=== PATIENT | female | born 1960 | race Asian ===

== ENCOUNTER 2021-12-18 09:01 | Inpatient (IN) | payer OTHER ==
[~2021-12-18] VITALS: Ht 149.9 cm; Wt 93.8 kg
[2021-12-18 09:35] LABS: BASOPHILS % (AUTO) 0.8 % (0.0-2.0); EOSINOPHILS % (AUTO) 2.5 % (1.0-6.0); HEMATOCRIT 38.3 % (36-46); HEMOGLOBIN 12.6 g/dL (12.0-16.0); LYMPHOCYTES # (AUTO) 1.7 K/uL (1.0-4.8); LYMPHOCYTES % (AUTO) 19.7 % (22.0-44.0); MEAN CORPUSCULAR VOLUME 82 fL (80-100); MONOCYTES # (AUTO) 0.5 K/uL (0.1-1.0); MONOCYTES % (AUTO) 5.5 % (2.0-9.0); NEUTROPHILS # (AUTO) 6.1 K/uL (1.8-7.7); NEUTROPHILS % (AUTO) 71.5 % (40.0-70.0); PLATELET COUNT (AUTO) 246 K/uL (150-450); RED BLOOD CELL COUNT(AUTO) 4.67 MIL/uL (4.00-5.20); RED CELL DISTRIBUTION WIDTH 14.4 % (11.5-14.5)
[2021-12-18 09:43] LABS: ANION GAP 8 mmol/L (8-16); CALCIUM, TOTAL 9.2 mg/dL (8.8-10.5); CARBON DIOXIDE 27 mmol/L (22-29); CHLORIDE 103 mmol/L (98-107); CREATININE 0.67 mg/dL (0.60-1.30); GLOMERULAR FILTR. RATE CALC > 60 mL/min (>60); GLUCOSE,RANDOM 121 mg/dL (70-110); POTASSIUM 4.2 mmol/L (3.5-5.1); SODIUM SERUM 138 mmol/L (136-145); UREA NITROGEN, BLOOD 18 mg/dL (7-18)
[2021-12-18 09:51] LABS: ALANINE AMINOTRANSFERASE 40 U/L (12-78); ALBUMIN 3.7 g/dL (3.4-5.0); ALKALINE PHOSPHATASE 76 U/L (46-116); ASPARTATE AMINOTRANSFERASE 29 U/L (15-37); BILIRUBIN,TOTAL 0.4 mg/dL (0.1-1.0)
[2021-12-18] MEDS ORDERED: LISI-661 PO (10:08)
[2021-12-18] MEDS ORDERED: ATOR40TA71 PO (10:08)
[2021-12-18] MEDS ORDERED: METF-1211 PO (10:08)
[2021-12-18] MEDS ORDERED: LAMO100T66 PO (10:11)
[2021-12-18] MEDS ORDERED: PROP10TA73 PO (10:11)
[2021-12-18 10:24] LABS: COVID AG,FIA SOURCE NASOPHARYNGEAL
[2021-12-18] MEDS ORDERED: ACETAMINOPHEN 500 MG TABLET PO ONE (10:45)
[2021-12-18] MEDS ORDERED: LORazepam 2 MG TABLET PO PRN (11:30)
[2021-12-18] MEDS ORDERED: ZOLPIDEM TARTRATE 10 MG TABLET PO PRN (11:30)
[2021-12-18] MEDS ORDERED: HALOPERIDOL 5 MG TABLET PO PRN (11:30)
[2021-12-18 15:14] VITALS: BP 158/68
[2021-12-18 16:30] VITALS: BP 119/63
[2021-12-18] MEDS: TraZODone HCL 50 MG TABLET PO SCH (20:53)
[2021-12-18] MEDS: RisperiDONE 2 MG TABLET PO SCH (20:53)
[2021-12-18] MEDS: LamoTRIgine 100 MG TABLET PO SCH (20:53)
[2021-12-18] MEDS ORDERED: IBUPROFEN 600 MG TABLET PO PRN (22:30)
[2021-12-18] MEDS ORDERED: PETROLATUM,WHITE 28 GM JELLY TP PRN (22:30)
[2021-12-18] MEDS ORDERED: MAG HYDROX/AL HYDROX/SIMETH ES 30 ML SUSPENSION UDCUP PO PRN (22:30)
[2021-12-18] MEDS ORDERED: CloNIDine HCL 0.1 MG TABLET PO PRN (22:30)
[2021-12-18] MEDS ORDERED: ALBUTEROL SULFATE HFA 90 MCG/PUFF 8 GM INHALER IH PRN (22:30)
[2021-12-18] MEDS ORDERED: MAGNESIUM HYDROXIDE SUSPENSION 30 ML UDCUP PO PRN (22:30)
[2021-12-18] MEDS ORDERED: BACITRACIN 28 GM OINTMENT TP PRN (22:30)
[2021-12-18] MEDS ORDERED: LOPERAMIDE HCL 2 MG CAPSULE PO PRN (22:30)
[2021-12-18] MEDS ORDERED: BENZOCAINE/MENTHOL LOZENGE PO PRN (22:30)
[2021-12-18] MEDS ORDERED: ONDANSETRON HCL 4 MG TABLET PO PRN (22:30)
[2021-12-19] MEDS: MetFORMIN HCL 500 MG TABLET PO SCH ×3 (07:00→17:14)
[2021-12-19] MEDS ORDERED: PREG50CA63 PO (08:07)
[2021-12-19] MEDS ORDERED: LISI5TAB21 PO (08:07)
[2021-12-19] MEDS ORDERED: LEVO50TA11 PO (08:07)
[2021-12-19] MEDS ORDERED: DEXTROSE 50%-WATER 25 GM/50 ML SYRINGE IVP PRN (08:30)
[2021-12-19] MEDS: DOCUSATE SODIUM 100 MG CAPSULE PO SCH (08:53)
[2021-12-19] MEDS: RisperiDONE 2 MG TABLET PO SCH ×2 (08:53→16:15)
[2021-12-19] MEDS: LamoTRIgine 100 MG TABLET PO SCH ×2 (08:53→16:15)
[2021-12-19] MEDS: OMEPRAZOLE 20 MG CAPSULE PO SCH (08:54)
[2021-12-19] MEDS: PREGABALIN 50 MG CAPSULE PO SCH ×2 (08:56→16:15)
[2021-12-19] MEDS: LISINOPRIL 10 MG TABLET PO SCH (08:56)
[2021-12-19] MEDS: LEVOTHYROXINE SODIUM 50 MCG TABLET PO SCH (09:00)
[2021-12-19 09:22] VITALS: BP 165/76
[2021-12-19] MEDS: INSULIN LISPRO 100 UNITS/ML SQ PRN (11:35)
[2021-12-19 11:46] LABS: GLUCOMETER DEV NAME(LOC) 3E.I 2; GLUCOSE,POINT OF CARE 77 MG/DL (70-110)
[2021-12-19 17:17] LABS: GLUCOMETER DEV NAME(LOC) 3E.I 2; GLUCOSE,POINT OF CARE 106 MG/DL (70-110)
[2021-12-19 17:19] VITALS: BP 101/70
[2021-12-19] MEDS: TraZODone HCL 50 MG TABLET PO SCH (20:10)
[2021-12-19 20:38] VITALS: BP 122/74
[2021-12-19] MEDS: ACETAMINOPHEN 325 MG TABLET PO PRN (20:38)
[2021-12-19 20:46] LABS: GLUCOMETER DEV NAME(LOC) 3E.I 2; GLUCOSE,POINT OF CARE 131 MG/DL (70-110)
[2021-12-19 21:38] VITALS: BP 115/75
[2021-12-20 04:08] VITALS: BP 135/84
[2021-12-20] MEDS: ACETAMINOPHEN 325 MG TABLET PO PRN ×2 (04:36→16:24)
[2021-12-20 04:42] VITALS: BP 132/80
[2021-12-20 06:37] LABS: GLUCOMETER DEV NAME(LOC) 3E.I 2; GLUCOSE,POINT OF CARE 110 MG/DL (70-110)
[2021-12-20 08:03] VITALS: BP 145/87
[2021-12-20] MEDS: DOCUSATE SODIUM 100 MG CAPSULE PO SCH (08:25)
[2021-12-20] MEDS: MetFORMIN HCL 500 MG TABLET PO SCH (08:25)
[2021-12-20] MEDS: LamoTRIgine 100 MG TABLET PO SCH ×2 (08:25→16:24)
[2021-12-20] MEDS: LEVOTHYROXINE SODIUM 50 MCG TABLET PO SCH (08:26)
[2021-12-20] MEDS: PREGABALIN 50 MG CAPSULE PO SCH ×2 (08:27→16:24)
[2021-12-20] MEDS: LISINOPRIL 10 MG TABLET PO SCH (08:27)
[2021-12-20] MEDS: OMEPRAZOLE 20 MG CAPSULE PO SCH (08:27)
[2021-12-20] MEDS: RisperiDONE 2 MG TABLET PO SCH ×2 (08:27→16:24)
[2021-12-20 11:51] LABS: GLUCOMETER DEV NAME(LOC) 3E.I 2; GLUCOSE,POINT OF CARE 88 MG/DL (70-110)
[2021-12-20] MEDS: INSULIN LISPRO 100 UNITS/ML SQ PRN (11:59)
[2021-12-20] MEDS ORDERED: DOCU-385 PO (13:53)
[2021-12-20] MEDS ORDERED: LEVO50 PO (13:53)
[2021-12-20] MEDS ORDERED: LISI-893 PO (13:53)
[2021-12-20] MEDS ORDERED: RISP2TAB45 PO (13:55)
[2021-12-20] MEDS ORDERED: TRAZ-252 PO (13:55)
[2021-12-20] MEDS ORDERED: OMEP20 PO (13:55)
[2021-12-20] MEDS ORDERED: PREG50 PO (13:55)
[2021-12-20 16:27] VITALS: BP 117/98
[2021-12-20 16:45] LABS: GLUCOMETER DEV NAME(LOC) 3E.I 2; GLUCOSE,POINT OF CARE 131 MG/DL (70-110)
== END 2021-12-20 17:20 | disposition home or self-care (01) | DRG 885 ==
LOC: EMS 09:01 → 3EI 13:30
PROVIDERS: ADMIT Psychiatry & Neurology Psychiatry; ATTEND Psychiatry & Neurology Psychiatry
DX: F25.1 Schizoaffective disorder, depressive type (principal); R45.851 Suicidal ideations; Z20.822 Contact with and (suspected) exposure to COVID-19; E03.9 Hypothyroidism, unspecified; E11.9 Type 2 diabetes mellitus without complications; E78.5 Hyperlipidemia, unspecified; G89.29 Other chronic pain; I10 Essential (primary) hypertension; M19.90 Unspecified osteoarthritis, unspecified site; G47.00 Insomnia, unspecified; K21.9 Gastro-esophageal reflux disease without esophagitis; G43.909 Migraine, unspecified, not intractable, without status migrainosus; F41.9 Anxiety disorder, unspecified
CPT/HCPCS: 80053; 82962; 85025; 99285; G0480